=== PATIENT | male | born 1980 | race Hispanic/Latino ===

== ENCOUNTER 2022-11-06 10:01 | Inpatient (IN) | payer OTHER, BC ==
[~2022-11-06 10:01] MED LIST: Iopamidol-370 76% 500 ML MDV (1 ML CHARGE) ONE
[2022-11-06] MEDS ORDERED: fentaNYL 50 mcg/mL 1 mL Vial ONE ×6 (10:36→20:40)
[2022-11-06] MEDS ORDERED: CEFAZOLIN 2 GM VIAL ONE (10:36)
[2022-11-06] MEDS ORDERED: TETANUS, DIPHTHERIA TOX,ADULT (TDVAX) 0.5 ML VIAL IM ONE (10:36)
[2022-11-06] MEDS ORDERED: Boostrix 0.5 ML (Tdap) VIAL (>/=7 yrs of age) ONE (10:38)
[2022-11-06 10:41] LABS: #Basophils 0.1 thou/uL (0.0-0.2); #Eosinphils 0.1 thou/uL (0.0-0.7); #Monocytes 1.3 thou/uL (0.11-0.59); #Neutrophils 17.1 thou/uL (1.40-6.50); %Basophils 0.5 % (0.0-1.0); %Eosinophils 0.5 % (0.0-10.0); %Lymphocytes 11.7 % (21.0-51.0); %Monocytes 5.9 % (0.0-10.0); %Neutrophils 80.5 % (42.0-75.0); Hemoglobin 14.5 g/dL (14.0-18.0); Mean Corpuscular HGB CONC 33.1 g/dL (32.0-36.0); Mean Corpuscular Volume 96.7 fl (78.0-98.0); Mean Platelet Volume 10.1 fL (7.4-10.4); Platelet Count 258 10x3/uL (130-400); RBC Distribution Width 13.4 % (11.5-14.5); Red Blood Cell (RBC) Count 4.53 mill/uL (4.70-6.10); White Blood Cell (WBC) Count 21.2 10x3/uL (4.8-10.8)
[2022-11-06 10:54] LABS: INR-International Normal Ratio 1.1; PTT 23.6 sec (22.9-36.1); Prothrombin Time 14.8 sec (12.0-14.7)
[2022-11-06 10:59] LABS: ALT (SGPT) 60 U/L (8-55); AST (SGOT) 61 U/L (5-34); Albumin 3.6 g/dL (3.5-5.0); Alkaline Phosphatase 76 U/L (40-110); Anion Gap 17 mmol/L (10-20); BUN (Urea Nitrogen) 5 mg/dL (8.9-20.6); Bilirubin, Total 0.6 mg/dL (0.2-1.2); Calc. Creatinine Clearance 0 mL/min (70-130); Carbon Dioxide 15 mmol/L (22-29); Chloride 108 mmol/L (98-107); Estimated GFR 98; Globulin 2.8 g/dL (2.4-3.5); Glucose 176 mg/dL (70-105); Potassium 4.4 mmol/L (3.5-5.1); Protein, Total 6.4 g/dL (6.0-8.3); Sodium 136 mmol/L (136-145)
[2022-11-06] MEDS ORDERED: CEFAZOLIN 2 GM in Sodium Chloride 0.9% 100 ML IVPB SCH ×2 (12:00→14:00)
[2022-11-06] MEDS ORDERED: Ipratropium/Albuterol 3 ML NEB NEB PRN (12:06)
[2022-11-06] MEDS ORDERED: Morphine 2 MG/ML VIAL SLOW IVP PRN (12:06)
[2022-11-06] MEDS ORDERED: Ondansetron PF 4 MG/2 ML Vial IVP PRN ×3 (12:06→21:23)
[2022-11-06] MEDS ORDERED: hydrALAZINE 20 MG/ML VIAL SLOW IVP PRN (12:06)
[2022-11-06] MEDS ORDERED: traMADol HCl 50 MG TAB PO PRN (12:11)
[2022-11-06] MEDS ORDERED: Cyclobenzaprine 10 MG TAB PO PRN (12:11)
[2022-11-06 12:24] LABS: #Basophils 0.1 thou/uL (0.0-0.2); #Monocytes 1.6 thou/uL (0.11-0.59); #Neutrophils 18.9 thou/uL (1.40-6.50); %Basophils 0.2 % (0.0-1.0); %Eosinophils 0.1 % (0.0-10.0); %Lymphocytes 7.6 % (21.0-51.0); %Neutrophils 84.5 % (42.0-75.0); Hemoglobin 13.4 g/dL (14.0-18.0); Mean Corpuscular HGB CONC 32.8 g/dL (32.0-36.0); Mean Corpuscular Hemoglobin 32.3 pg (27.0-31.0); Mean Corpuscular Volume 98.6 fl (78.0-98.0); Mean Platelet Volume 10.2 fL (7.4-10.4); Platelet Count 248 10x3/uL (130-400); RBC Distribution Width 13.4 % (11.5-14.5); Red Blood Cell (RBC) Count 4.15 mill/uL (4.70-6.10); White Blood Cell (WBC) Count 22.3 10x3/uL (4.8-10.8)
[2022-11-06] MEDS ORDERED: Sodium Chloride 0.9% 1,000 ML IV SCH (12:30)
[2022-11-06] MEDS ORDERED: Ondansetron PF 4 MG/2 ML Vial ONE ×2 (12:47→16:30)
[2022-11-06 12:48] LABS: Lactic Acid 6.4 mmol/L (0.5-2.2)
[2022-11-06] MEDS ORDERED: Calcium Chloride 1 GM/10 ML Abboject SYRINGE ONE (13:12)
[2022-11-06 14:06] LABS: Lactic Acid 8.3 mmol/L (0.5-2.2)
[2022-11-06 14:59] LABS: #Monocytes 1.6 thou/uL (0.11-0.59); #Neutrophils 15.8 thou/uL (1.40-6.50); %Basophils 0.2 % (0.0-1.0); %Eosinophils 0.1 % (0.0-10.0); %Lymphocytes 3.7 % (21.0-51.0); %Monocytes 8.6 % (0.0-10.0); %Neutrophils 86.8 % (42.0-75.0); Mean Corpuscular HGB CONC 33.8 g/dL (32.0-36.0); Mean Corpuscular Hemoglobin 31.1 pg (27.0-31.0); Mean Platelet Volume 10.1 fL (7.4-10.4); Platelet Count 184 10x3/uL (130-400); RBC Distribution Width 14.6 % (11.5-14.5); Red Blood Cell (RBC) Count 4.83 mill/uL (4.70-6.10); White Blood Cell (WBC) Count 18.2 10x3/uL (4.8-10.8)
[2022-11-06 15:19] LABS: Bacteria/HPF 2+ HPF (None Seen); Bilirubin Negative (Negative); Blood, Urine 1+ (Negative); CAUTI Indications for Culture Urological Procedure; Clarity Clear (Clear); Glucose, Urine (Dipstick) 50 mg/dL (Negative); Ketone, Urine Negative (Negative); Leukocyte Negative Leu/uL (Negative); Nitrite Negative (Negative); Protein, Urine (Dipstick) 100 mg/dL (Neg-Trace); Specific Gravity, Urine 1.048 (1.002-1.036); Squamous Epithelial 0-3 HPF (0-3); Urobilinogen Normal mg/dL (Less than 2)
[2022-11-06 15:19] LABS: Anion Gap 15 mmol/L (10-20); BUN (Urea Nitrogen) 6 mg/dL (8.9-20.6); Calc. Creatinine Clearance 0 mL/min (70-130); Calcium 8.7 mg/dL (7.8-10.44); Carbon Dioxide 17 mmol/L (22-29); Chloride 109 mmol/L (98-107); Estimated GFR 98; Glucose 140 mg/dL (70-105); Potassium 4.6 mmol/L (3.5-5.1); Sodium 136 mmol/L (136-145)
[2022-11-06 15:22] LABS: Urine Culture Reflex Yes Yes
[2022-11-06 15:22] LABS: Mean Corpuscular Volume 91.9 fl (78.0-98.0)
[2022-11-06] MEDS ORDERED: Fentanyl 250 MCG/5 ML VIAL ONE (15:34)
[2022-11-06] MEDS ORDERED: Dexmedetomidine 200 MCG/2 ML VIAL ONE (15:34)
[2022-11-06 15:49] LABS: Lactic Acid 4.4 mmol/L (0.5-2.2)
[2022-11-06] MEDS ORDERED: PHENYLEPHRINE-NS 100 MCG/ML 10 ML SYRINGE ONE (16:30)
[2022-11-06] MEDS ORDERED: PROPOFOL 200 MG/20 ML VIAL ONE (16:30)
[2022-11-06] MEDS ORDERED: Rocuronium Bromide 10 MG/ML (10ML VIAL) ONE (16:30)
[2022-11-06] MEDS ORDERED: Tranexamic Acid 1,000 MG/10 ML VIAL ONE (17:02)
[2022-11-06] MEDS ORDERED: traMADol HCl 50 MG TAB PO SCH (18:00)
[2022-11-06] MEDS ORDERED: HYDROmorphone 2 MG/ML VIAL ONE (18:28)
[2022-11-06] MEDS ORDERED: SUGAMMADEX SODIUM 200 MG/2 ML VIAL ONE (20:42)
[2022-11-06] MEDS ORDERED: Zolpidem Tartrate 5 MG TAB PO PRN ×2 (20:53→21:23)
[2022-11-06] MEDS ORDERED: diphenhydrAMINE 50 MG/ML VIAL IM PRN ×2 (20:53→21:23)
[2022-11-06] MEDS ORDERED: Promethazine HCl 25 MG/ML VIAL IM PRN ×2 (20:53→21:23)
[2022-11-06] MEDS ORDERED: diphenhydrAMINE 25 MG CAP PO PRN ×2 (20:53→21:23)
[2022-11-06] MEDS ORDERED: Naloxone HCl 0.4 mg/ml Vial IV PRN ×2 (20:53→21:23)
[2022-11-06] MEDS ORDERED: HYDROmorphone 10 mg/100 ml CADD IVPB PRN (20:53)
[2022-11-06] MEDS ORDERED: diphenhydrAMINE 50 MG/ML VIAL IVP PRN ×2 (20:53→21:23)
[2022-11-06] MEDS: Sodium Chloride 0.9% 1,000 ML IV SCH (20:59)
[2022-11-06] MEDS ORDERED: Communication Order-Pharmacy FS SCH ×2 (21:00→21:30)
[2022-11-06] MEDS ORDERED: FENTANYL 500 MCG/10 ML VIAL 2,000 MCG in Sodium Chloride 0.9% 60 ML IV PRN (21:23)
[2022-11-06 21:28] LABS: #Monocytes 0.9 thou/uL (0.11-0.59); #Neutrophils 11.4 thou/uL (1.40-6.50); %Basophils 0.2 % (0.0-1.0); %Lymphocytes 4.8 % (21.0-51.0); %Monocytes 7.1 % (0.0-10.0); %Neutrophils 87.4 % (42.0-75.0); Mean Corpuscular HGB CONC 33.7 g/dL (32.0-36.0); Mean Corpuscular Hemoglobin 31.6 pg (27.0-31.0); Mean Corpuscular Volume 93.8 fl (78.0-98.0); Mean Platelet Volume 10.2 fL (7.4-10.4); Platelet Count 146 10x3/uL (130-400); RBC Distribution Width 15.5 % (11.5-14.5)
[2022-11-06 21:41] LABS: Hemoglobin 11.7 g/dL (14.0-18.0)
[2022-11-06] MEDS: Acetaminophen 500 MG TAB PO SCH ×3 (21:41→23:41)
[2022-11-06 21:53] LABS: Lactic Acid 9.2 mmol/L (0.5-2.2)
[2022-11-06] MEDS: Fentanyl CADD 100 ML IV PRN (22:14)
[2022-11-06 22:30] VITALS: BMI 37.5
[2022-11-06] MEDS: Gabapentin 300 MG CAP PO SCH ×2 (23:16→23:30)
[2022-11-06] MEDS: Senokot S 8.6-50 MG TAB PO SCH (23:30)
[2022-11-06] MEDS: Famotidine/PF 20 mg/2ml Vial SLOW IVP SCH (23:32)
[2022-11-07] MEDS: Sodium Chloride 0.9% 1,000 ML IV SCH ×8 (00:02→22:50)
[2022-11-07 00:25] LABS: Lactic Acid 6.4 mmol/L (0.5-2.2)
[2022-11-07 00:44] LABS: #Monocytes 0.9 thou/uL (0.11-0.59); #Neutrophils 8.5 thou/uL (1.40-6.50); %Basophils 0.2 % (0.0-1.0); %Lymphocytes 8.1 % (21.0-51.0); %Monocytes 8.3 % (0.0-10.0); Hemoglobin 10.3 g/dL (14.0-18.0); Mean Corpuscular HGB CONC 33.9 g/dL (32.0-36.0); Mean Corpuscular Hemoglobin 31.4 pg (27.0-31.0); Mean Corpuscular Volume 92.7 fl (78.0-98.0); Mean Platelet Volume 10.4 fL (7.4-10.4); Platelet Count 135 10x3/uL (130-400); RBC Distribution Width 15.6 % (11.5-14.5); Red Blood Cell (RBC) Count 3.28 mill/uL (4.70-6.10); White Blood Cell (WBC) Count 10.3 10x3/uL (4.8-10.8)
[2022-11-07 01:04] LABS: Anion Gap 18 mmol/L (10-20); BUN (Urea Nitrogen) 8 mg/dL (8.9-20.6); Calc. Creatinine Clearance 173 mL/min (70-130); Calcium 7.7 mg/dL (7.8-10.44); Carbon Dioxide 16 mmol/L (22-29); Chloride 108 mmol/L (98-107); Estimated GFR 109; Glucose 143 mg/dL (70-105); Potassium 4.4 mmol/L (3.5-5.1); Sodium 138 mmol/L (136-145)
[2022-11-07 01:09] LABS: Troponin I 0.045 ng/mL (< 0.028)
[2022-11-07 03:58] LABS: #Neutrophils 8.2 thou/uL (1.40-6.50); %Basophils 0.4 % (0.0-1.0); %Lymphocytes 11.2 % (21.0-51.0); %Monocytes 9.7 % (0.0-10.0); %Neutrophils 78.3 % (42.0-75.0); Hemoglobin 9.8 g/dL (14.0-18.0); Mean Corpuscular Hemoglobin 31.1 pg (27.0-31.0); Mean Corpuscular Volume 91.4 fl (78.0-98.0); Mean Platelet Volume 11.2 fL (7.4-10.4); Platelet Count 130 10x3/uL (130-400); RBC Distribution Width 15.5 % (11.5-14.5); Red Blood Cell (RBC) Count 3.15 mill/uL (4.70-6.10); White Blood Cell (WBC) Count 10.5 10x3/uL (4.8-10.8)
[2022-11-07 04:19] LABS: Anion Gap 14 mmol/L (10-20); BUN (Urea Nitrogen) 7 mg/dL (8.9-20.6); Calc. Creatinine Clearance 179 mL/min (70-130); Calcium 7.4 mg/dL (7.8-10.44); Carbon Dioxide 18 mmol/L (22-29); Chloride 108 mmol/L (98-107); Estimated GFR 110; Glucose 128 mg/dL (70-105); Magnesium 1.5 mg/dL (1.6-2.6); Potassium 4.2 mmol/L (3.5-5.1); Sodium 136 mmol/L (136-145)
[2022-11-07 04:22] LABS: CK (CPK) 3308 U/L (30-200); Phosphorus 3.3 mg/dL (2.3-4.7)
[2022-11-07 04:34] LABS: Lactic Acid 4.1 mmol/L (0.5-2.2)
[2022-11-07 04:36] LABS: ALT (SGPT) 40 U/L (8-55); AST (SGOT) 74 U/L (5-34); Albumin 2.9 g/dL (3.5-5.0); Alkaline Phosphatase 48 U/L (40-110); Bilirubin, Direct 0.6 mg/dL (0.1-0.3); Bilirubin, Total 1.2 mg/dL (0.2-1.2); Protein, Total 4.9 g/dL (6.0-8.3)
[2022-11-07] MEDS: Acetaminophen 500 MG TAB PO SCH ×3 (05:10→17:17)
[2022-11-07] MEDS: CEFAZOLIN 2 GM in Sodium Chloride 0.9% 100 ML IVPB SCH ×4 (05:13→22:31)
[2022-11-07] MEDS: Senokot S 8.6-50 MG TAB PO SCH ×2 (08:34→20:52)
[2022-11-07] MEDS: Polyethylene Glycol 3350 17 GM Packet PO SCH (08:35)
[2022-11-07] MEDS: Gabapentin 300 MG CAP PO SCH ×3 (08:35→20:50)
[2022-11-07] MEDS: Famotidine/PF 20 mg/2ml Vial SLOW IVP SCH ×2 (08:37→20:52)
[2022-11-07] MEDS: Magnesium Sulfate In Water 4 GM in Premix Bag 1 BAG IVPB SCH ×2 (08:37→09:59)
[2022-11-07] MEDS ORDERED: Magnesium Sulfate In Water 4 GM in Premix Bag 1 BAG IVPB SCH (09:00)
[2022-11-07] MEDS ORDERED: Bupivacaine PF 0.5% 30 ML VIAL ONE (13:05)
[2022-11-07] MEDS ORDERED: fentaNYL PF 100 MCG/2 ML SYRINGE ONE (13:06)
[2022-11-07] MEDS ORDERED: Lidocaine 1% PF 5 ML VIAL ONE (13:27)
[2022-11-07] MEDS ORDERED: PROPOFOL 200 MG/20 ML VIAL ONE (13:27)
[2022-11-07] MEDS ORDERED: PROPOFOL 40 ML ONE (13:43)
[2022-11-07 14:18] LABS: Analyzer IN Cardio OR; Base Excess (BEa) -7.8 mEq/L (-2.0 to +3.0); CO2 Tension 32.6 mmHg (35.0-45.0); Calcium, Ionized (arterial) 1.09 mmol/L (1.12-1.30); Carboxyhemoglobin (COHb) 1.9 gm% (0.0-3.0); Hematocrit-ABG 39 % (42.0-52.0); Hemoglobin (Hb) 13.4 g/dL (14.0-18.0); O2 Tension (PaO2), arterial 165.5 mmHg (80.0-100.0); Potassium - ABG Lab 5.22 mmol/L (3.70-5.30); pH, Arterial 7.334 (7.35-7.45)
[2022-11-07 14:19] LABS: Actual Bicarbonate (HCO3a) 17.6 mEq/L (22-28); Analyzer IN Cardio OR; Base Excess (BEa) -6.9 mEq/L (-2.0 to +3.0); CO2 Tension 31.8 mmHg (35.0-45.0); Calcium, Ionized (arterial) 1.05 mmol/L (1.12-1.30); Carboxyhemoglobin (COHb) 1.2 gm% (0.0-3.0); Hematocrit-ABG 34 % (42.0-52.0); Hemoglobin (Hb) 11.6 g/dL (14.0-18.0); O2 Tension (PaO2), arterial 158.6 mmHg (80.0-100.0); Potassium - ABG Lab 4.92 mmol/L (3.70-5.30); Puncture Site Arterial Line
[2022-11-07 14:19] LABS: Puncture Site Arterial Line
[2022-11-07] MEDS ORDERED: PROPOFOL 20 ML ONE (14:26)
[2022-11-07] MEDS ORDERED: Calcium Chloride 1 GM/10 ML Abboject SYRINGE IVP SCH (15:30)
[2022-11-07 17:25] LABS: #Monocytes 0.6 thou/uL (0.11-0.59); #Neutrophils 6.1 thou/uL (1.40-6.50); %Basophils 0.3 % (0.0-1.0); %Eosinophils 0.5 % (0.0-10.0); %Lymphocytes 13.8 % (21.0-51.0); %Monocytes 7.7 % (0.0-10.0); %Neutrophils 77.3 % (42.0-75.0); Hemoglobin 7.9 g/dL (14.0-18.0); Mean Corpuscular HGB CONC 33.6 g/dL (32.0-36.0); Mean Corpuscular Hemoglobin 31.3 pg (27.0-31.0); Mean Corpuscular Volume 93.3 fl (78.0-98.0); Mean Platelet Volume 10.4 fL (7.4-10.4); Platelet Count 101 10x3/uL (130-400); RBC Distribution Width 15.2 % (11.5-14.5); Red Blood Cell (RBC) Count 2.52 mill/uL (4.70-6.10); White Blood Cell (WBC) Count 7.9 10x3/uL (4.8-10.8)
[2022-11-07] MEDS ORDERED: Sodium Chloride 0.9% 1,000 ML IV SCH (17:30)
[2022-11-07 17:43] LABS: Lactic Acid 1.7 mmol/L (0.5-2.2)
[2022-11-07 17:48] LABS: Anion Gap 11 mmol/L (10-20); BUN (Urea Nitrogen) 6 mg/dL (8.9-20.6); Calc. Creatinine Clearance 207 mL/min (70-130); Calcium 7.4 mg/dL (7.8-10.44); Carbon Dioxide 21 mmol/L (22-29); Chloride 109 mmol/L (98-107); Estimated GFR 115; Glucose 119 mg/dL (70-105); Magnesium 2.4 mg/dL (1.6-2.6); Potassium 3.9 mmol/L (3.5-5.1); Sodium 137 mmol/L (136-145)
[2022-11-07 18:05] LABS: CK (CPK) 4821 U/L (30-200)
[2022-11-07 18:20] LABS: Phosphorus 1.9 mg/dL (2.3-4.7)
[2022-11-07] MEDS: Fentanyl CADD 100 ML IV PRN (20:04)
[2022-11-07] MEDS ORDERED: Potassium Phosphate 30 MMOL in Sodium Chloride 0.9% 250 ML 250 ML IVPB SCH (21:45)
[2022-11-08] MEDS: Acetaminophen 500 MG TAB PO SCH ×4 (00:38→18:48)
[2022-11-08] MEDS: Sodium Chloride 0.9% 1,000 ML IV SCH ×2 (05:15→09:17)
[2022-11-08 07:19] LABS: #Eosinphils 0.1 thou/uL (0.0-0.7); #Monocytes 0.6 thou/uL (0.11-0.59); %Basophils 0.1 % (0.0-1.0); %Eosinophils 0.8 % (0.0-10.0); %Lymphocytes 14.6 % (21.0-51.0); %Monocytes 7.9 % (0.0-10.0); Hemoglobin 7.4 g/dL (14.0-18.0); Mean Corpuscular HGB CONC 34.1 g/dL (32.0-36.0); Mean Corpuscular Volume 93.9 fl (78.0-98.0); Mean Platelet Volume 10.1 fL (7.4-10.4); Platelet Count 99 10x3/uL (130-400); RBC Distribution Width 14.6 % (11.5-14.5); Red Blood Cell (RBC) Count 2.31 mill/uL (4.70-6.10); White Blood Cell (WBC) Count 7.9 10x3/uL (4.8-10.8)
[2022-11-08] MEDS ORDERED: Morphine 2 MG/ML VIAL SLOW IVP PRN (07:21)
[2022-11-08] MEDS ORDERED: Morphine 4 MG/ML VIAL SLOW IVP PRN (07:21)
[2022-11-08 07:48] LABS: Anion Gap 9 mmol/L (10-20); BUN (Urea Nitrogen) Less than 4 mg/dL (8.9-20.6); Calc. Creatinine Clearance 265 mL/min (70-130); Calcium 6.6 mg/dL (7.8-10.44); Carbon Dioxide 20 mmol/L (22-29); Chloride 113 mmol/L (98-107); Estimated GFR 121; Glucose 102 mg/dL (70-105); Magnesium 1.6 mg/dL (1.6-2.6); Phosphorus 2.5 mg/dL (2.3-4.7); Potassium 3.2 mmol/L (3.5-5.1); Sodium 139 mmol/L (136-145)
[2022-11-08] MEDS ORDERED: traMADol HCl 50 MG TAB PO SCH (08:00)
[2022-11-08] MEDS: Senokot S 8.6-50 MG TAB PO SCH ×2 (09:14→20:53)
[2022-11-08] MEDS: Ascorbic Acid 500 mg Chewable Tablet PO SCH ×2 (09:14→16:50)
[2022-11-08] MEDS: Gabapentin 300 MG CAP PO SCH ×3 (09:14→20:51)
[2022-11-08] MEDS: Ferrous Sulfate 325 MG TAB PO SCH ×2 (09:15→16:50)
[2022-11-08] MEDS: Famotidine 20 MG TAB PO SCH ×2 (09:15→20:51)
[2022-11-08] MEDS: Polyethylene Glycol 3350 17 GM Packet PO SCH (09:16)
[2022-11-08] MEDS ORDERED: Ondansetron PF 4 MG/2 ML Vial IVP PRN (10:39)
[2022-11-08] MEDS ORDERED: Naloxone HCl 0.4 mg/ml Vial IV PRN (10:39)
[2022-11-08] MEDS ORDERED: Promethazine HCl 25 MG/ML VIAL IM PRN (10:39)
[2022-11-08] MEDS ORDERED: diphenhydrAMINE 50 MG/ML VIAL IM PRN (10:39)
[2022-11-08] MEDS ORDERED: diphenhydrAMINE 50 MG/ML VIAL IVP PRN (10:39)
[2022-11-08] MEDS ORDERED: Zolpidem Tartrate 5 MG TAB PO PRN (10:39)
[2022-11-08] MEDS ORDERED: diphenhydrAMINE 25 MG CAP PO PRN (10:39)
[2022-11-08] MEDS ORDERED: Communication Order-Pharmacy FS SCH (10:45)
[2022-11-08] MEDS: HYDROmorphone 10 mg/100 ml CADD IVPB PRN (11:16)
[2022-11-08 12:02] LABS: #Eosinphils 0.1 thou/uL (0.0-0.7); #Monocytes 0.6 thou/uL (0.11-0.59); #Neutrophils 6.3 thou/uL (1.40-6.50); %Basophils 0.4 % (0.0-1.0); %Eosinophils 0.8 % (0.0-10.0); %Lymphocytes 14.3 % (21.0-51.0); %Neutrophils 76.8 % (42.0-75.0); Hemoglobin 8.5 g/dL (14.0-18.0); Mean Corpuscular HGB CONC 33.7 g/dL (32.0-36.0); Mean Corpuscular Hemoglobin 30.7 pg (27.0-31.0); Mean Platelet Volume 10.3 fL (7.4-10.4); RBC Distribution Width 14.4 % (11.5-14.5); Red Blood Cell (RBC) Count 2.77 mill/uL (4.70-6.10); White Blood Cell (WBC) Count 8.3 10x3/uL (4.8-10.8)
[2022-11-08 12:07] LABS: Platelet Count 106 10x3/uL (130-400)
[2022-11-08 12:09] LABS: Manual Diff?? NO
[2022-11-08 12:40] LABS: CK (CPK) 5705 U/L (30-200)
[2022-11-08 12:46] LABS: Anion Gap 10 mmol/L (10-20); Carbon Dioxide 23 mmol/L (22-29); Chloride 107 mmol/L (98-107); Glucose 126 mg/dL (70-105); Magnesium 1.9 mg/dL (1.6-2.6); Phosphorus 1.5 mg/dL (2.3-4.7); Potassium 3.4 mmol/L (3.5-5.1); Sodium 137 mmol/L (136-145)
[2022-11-08 12:53] LABS: Calcium 7.7 mg/dL (7.8-10.44)
[2022-11-08 12:55] LABS: Calc. Creatinine Clearance 235 mL/min (70-130); Estimated GFR 117
[2022-11-08 12:59] LABS: BUN (Urea Nitrogen) Less than 4 mg/dL (8.9-20.6)
[2022-11-08] MEDS ORDERED: Magnesium 2 GM/50 ML(in water) 2 GM in Premix Bag 1 BAG IVPB SCH ×2 (13:00→18:30)
[2022-11-08] MEDS ORDERED: Potassium Phosphate 30 MMOL in Sodium Chloride 0.9% 250 ML 250 ML IVPB SCH ×2 (13:00→18:30)
[2022-11-08] MEDS ORDERED: Furosemide 20 MG/2 ML VIAL SLOW IVP SCH (16:00)
[2022-11-08 17:58] LABS: Anion Gap 13 mmol/L (10-20); BUN (Urea Nitrogen) Less than 4 mg/dL (8.9-20.6); Calc. Creatinine Clearance 226 mL/min (70-130); Calcium 8.1 mg/dL (7.8-10.44); Carbon Dioxide 23 mmol/L (22-29); Chloride 105 mmol/L (98-107); Estimated GFR 115; Glucose 111 mg/dL (70-105); Magnesium 1.9 mg/dL (1.6-2.6); Sodium 137 mmol/L (136-145)
[2022-11-08] MEDS: Cyclobenzaprine 10 MG TAB PO PRN (20:53)
[2022-11-09] MEDS: Acetaminophen 500 MG TAB PO SCH ×5 (01:07→22:06)
[2022-11-09 06:07] LABS: #Eosinphils 0.2 thou/uL (0.0-0.7); #Monocytes 0.7 thou/uL (0.11-0.59); #Neutrophils 6.4 thou/uL (1.40-6.50); %Basophils 0.5 % (0.0-1.0); %Eosinophils 1.7 % (0.0-10.0); %Lymphocytes 16.2 % (21.0-51.0); %Monocytes 7.8 % (0.0-10.0); %Neutrophils 73.2 % (42.0-75.0); Hemoglobin 8.1 g/dL (14.0-18.0); Mean Corpuscular HGB CONC 33.2 g/dL (32.0-36.0); Mean Corpuscular Hemoglobin 30.2 pg (27.0-31.0); Mean Platelet Volume 10.1 fL (7.4-10.4); Platelet Count 121 10x3/uL (130-400); RBC Distribution Width 14.6 % (11.5-14.5); Red Blood Cell (RBC) Count 2.68 mill/uL (4.70-6.10); White Blood Cell (WBC) Count 8.8 10x3/uL (4.8-10.8)
[2022-11-09 06:28] LABS: Anion Gap 11 mmol/L (10-20); BUN (Urea Nitrogen) 4 mg/dL (8.9-20.6); Calc. Creatinine Clearance 242 mL/min (70-130); Calcium 7.8 mg/dL (7.8-10.44); Carbon Dioxide 23 mmol/L (22-29); Chloride 106 mmol/L (98-107); Estimated GFR 118; Glucose 91 mg/dL (70-105); Magnesium 2.2 mg/dL (1.6-2.6); Phosphorus 3.4 mg/dL (2.3-4.7); Potassium 4.2 mmol/L (3.5-5.1); Sodium 136 mmol/L (136-145)
[2022-11-09 06:49] LABS: CK (CPK) 5092 U/L (30-200)
[2022-11-09] MEDS ORDERED: Sodium Chloride 0.9% 1,000 ML IV SCH (07:30)
[2022-11-09] MEDS: Ferrous Sulfate 325 MG TAB PO SCH ×2 (09:19→16:15)
[2022-11-09] MEDS: Ascorbic Acid 500 mg Chewable Tablet PO SCH ×2 (09:19→16:15)
[2022-11-09] MEDS: Senokot S 8.6-50 MG TAB PO SCH ×2 (09:19→22:05)
[2022-11-09] MEDS: Famotidine 20 MG TAB PO SCH ×2 (09:19→22:05)
[2022-11-09] MEDS: Polyethylene Glycol 3350 17 GM Packet PO SCH (09:20)
[2022-11-09] MEDS: Gabapentin 300 MG CAP PO SCH ×3 (09:20→22:05)
[2022-11-09 14:42] LABS: Hemoglobin 8.2 g/dL (14.0-18.0); Mean Corpuscular HGB CONC 33.6 g/dL (32.0-36.0); Mean Corpuscular Hemoglobin 31.5 pg (27.0-31.0); Mean Platelet Volume 9.8 fL (7.4-10.4); Platelet Count 148 10x3/uL (130-400); RBC Distribution Width 14.7 % (11.5-14.5); White Blood Cell (WBC) Count 9.2 10x3/uL (4.8-10.8)
[2022-11-09 14:43] LABS: Delete Auto Diff?? YES; Manual Diff?? YES; Mean Corpuscular Volume 93.8 fl (78.0-98.0)
[2022-11-09 14:53] LABS: Lactic Acid 0.9 mmol/L (0.5-2.2)
[2022-11-09 14:57] LABS: Anion Gap 11 mmol/L (10-20); BUN (Urea Nitrogen) 7 mg/dL (8.9-20.6); Calc. Creatinine Clearance 235 mL/min (70-130); Carbon Dioxide 24 mmol/L (22-29); Chloride 101 mmol/L (98-107); Estimated GFR 117; Glucose 115 mg/dL (70-105); Sodium 132 mmol/L (136-145)
[2022-11-09 15:03] LABS: Band 3 % (5-11); CellaVision Operator ID LAB.MJL; Eosinophils 1 % (0-10); Lymphocytes 9 % (21-51); Monocytes 7 % (0-10); Neutrophil 79 % (42-75); Nucleated RBC (Manual Ct) 1 % (0); Platelet Adequacy Comment Platelets Normal; Polychromasia SLIGHT = 2-3 cells HPF (0-2); Total Cell Count 101
[2022-11-09] MEDS: HYDROmorphone 10 mg/100 ml CADD IVPB PRN (15:08)
[2022-11-09 16:49] LABS: Troponin I 0.028 ng/mL (< 0.028)
[2022-11-10] MEDS: Acetaminophen 500 MG TAB PO SCH ×3 (05:43→17:51)
[2022-11-10 07:30] LABS: #Eosinphils 0.2 thou/uL (0.0-0.7); #Monocytes 0.8 thou/uL (0.11-0.59); #Neutrophils 5.9 thou/uL (1.40-6.50); %Basophils 0.5 % (0.0-1.0); %Lymphocytes 15.4 % (21.0-51.0); %Monocytes 9.5 % (0.0-10.0); %Neutrophils 70.3 % (42.0-75.0); Hemoglobin 8.3 g/dL (14.0-18.0); Mean Corpuscular HGB CONC 34.4 g/dL (32.0-36.0); Mean Corpuscular Hemoglobin 32.2 pg (27.0-31.0); Mean Corpuscular Volume 93.4 fl (78.0-98.0); Mean Platelet Volume 9.5 fL (7.4-10.4); Platelet Count 168 10x3/uL (130-400); RBC Distribution Width 14.5 % (11.5-14.5); Red Blood Cell (RBC) Count 2.58 mill/uL (4.70-6.10); White Blood Cell (WBC) Count 8.4 10x3/uL (4.8-10.8)
[2022-11-10 07:52] LABS: Anion Gap 9 mmol/L (10-20); BUN (Urea Nitrogen) 6 mg/dL (8.9-20.6); Calc. Creatinine Clearance 257 mL/min (70-130); Calcium 8.2 mg/dL (7.8-10.44); Carbon Dioxide 25 mmol/L (22-29); Chloride 105 mmol/L (98-107); Estimated GFR 120; Glucose 102 mg/dL (70-105); Magnesium 1.9 mg/dL (1.6-2.6); Phosphorus 2.9 mg/dL (2.3-4.7); Potassium 3.8 mmol/L (3.5-5.1); Sodium 135 mmol/L (136-145)
[2022-11-10 08:04] LABS: CK (CPK) 4613 U/L (30-200)
[2022-11-10] MEDS: Senokot S 8.6-50 MG TAB PO SCH ×2 (08:16→21:21)
[2022-11-10] MEDS: Polyethylene Glycol 3350 17 GM Packet PO SCH (08:16)
[2022-11-10] MEDS: Gabapentin 300 MG CAP PO SCH ×3 (08:16→21:22)
[2022-11-10] MEDS: Ascorbic Acid 500 mg Chewable Tablet PO SCH ×2 (08:16→17:52)
[2022-11-10] MEDS: Ferrous Sulfate 325 MG TAB PO SCH ×2 (08:17→17:52)
[2022-11-10] MEDS: Famotidine 20 MG TAB PO SCH ×2 (08:17→21:21)
[2022-11-10] MEDS: Ibuprofen 200 MG TAB PO SCH ×2 (09:32→17:51)
[2022-11-10] MEDS: traMADol HCl 50 MG TAB PO SCH ×3 (09:33→21:32)
[2022-11-10] MEDS: Cyclobenzaprine 10 MG TAB PO PRN ×2 (13:01→21:21)
[2022-11-10] MEDS: Ondansetron PF 4 MG/2 ML Vial IVP PRN ×2 (14:40→21:22)
[2022-11-10] MEDS: traMADol HCl 50 MG TAB PO PRN (17:52)
[2022-11-10] MEDS ORDERED: Acetaminophen/Codeine 30-300mg Tablet PO SCH (21:00)
[2022-11-10] MEDS: Acetaminophen/Codeine 30-300mg Tablet PO SCH (21:20)
[2022-11-10] MEDS: Acetaminophen 325 MG/10.15 ML UDCUP PO SCH (21:41)
[2022-11-11] MEDS: Acetaminophen/Codeine 30-300mg Tablet PO SCH ×4 (02:18→20:16)
[2022-11-11] MEDS: Ibuprofen 200 MG TAB PO SCH ×3 (02:18→16:07)
[2022-11-11] MEDS: traMADol HCl 50 MG TAB PO SCH ×4 (02:19→20:17)
[2022-11-11] MEDS: Acetaminophen 325 MG/10.15 ML UDCUP PO SCH ×4 (05:17→23:13)
[2022-11-11] MEDS: Gabapentin 300 MG CAP PO SCH ×3 (08:01→20:16)
[2022-11-11] MEDS: Polyethylene Glycol 3350 17 GM Packet PO SCH (08:01)
[2022-11-11] MEDS: Ascorbic Acid 500 mg Chewable Tablet PO SCH ×2 (08:02→16:07)
[2022-11-11] MEDS: Ferrous Sulfate 325 MG TAB PO SCH ×2 (08:02→16:08)
[2022-11-11] MEDS: Senokot S 8.6-50 MG TAB PO SCH ×2 (08:03→20:16)
[2022-11-11] MEDS: Famotidine 20 MG TAB PO SCH ×2 (08:03→20:17)
[2022-11-11] MEDS: Cyclobenzaprine 10 MG TAB PO PRN ×2 (11:39→20:16)
[2022-11-12] MEDS: Acetaminophen/Codeine 30-300mg Tablet PO SCH ×4 (03:16→20:34)
[2022-11-12] MEDS: traMADol HCl 50 MG TAB PO SCH ×4 (03:17→20:33)
[2022-11-12] MEDS: Ibuprofen 200 MG TAB PO SCH ×3 (03:19→16:53)
[2022-11-12] MEDS: Acetaminophen 325 MG/10.15 ML UDCUP PO SCH ×4 (05:45→20:34)
[2022-11-12] MEDS: Polyethylene Glycol 3350 17 GM Packet PO SCH (08:00)
[2022-11-12] MEDS: Ferrous Sulfate 325 MG TAB PO SCH ×2 (08:00→16:53)
[2022-11-12] MEDS: Gabapentin 300 MG CAP PO SCH ×3 (08:01→20:35)
[2022-11-12] MEDS: Senokot S 8.6-50 MG TAB PO SCH ×2 (08:03→20:33)
[2022-11-12] MEDS: Ascorbic Acid 500 mg Chewable Tablet PO SCH ×2 (08:03→16:53)
[2022-11-12] MEDS: Famotidine 20 MG TAB PO SCH ×2 (08:03→20:32)
[2022-11-12] MEDS: Cyclobenzaprine 10 MG TAB PO PRN (15:26)
[2022-11-12] MEDS: traMADol HCl 50 MG TAB PO PRN (18:10)
[2022-11-13] MEDS: Ibuprofen 200 MG TAB PO SCH ×3 (00:46→17:56)
[2022-11-13] MEDS: Acetaminophen 325 MG/10.15 ML UDCUP PO SCH (02:34)
[2022-11-13] MEDS: Acetaminophen/Codeine 30-300mg Tablet PO SCH ×2 (02:35→08:20)
[2022-11-13] MEDS: traMADol HCl 50 MG TAB PO SCH ×2 (02:36→08:19)
[2022-11-13] MEDS: Cyclobenzaprine 10 MG TAB PO PRN (06:24)
[2022-11-13] MEDS: Ascorbic Acid 500 mg Chewable Tablet PO SCH ×2 (08:17→17:58)
[2022-11-13] MEDS: Ferrous Sulfate 325 MG TAB PO SCH ×2 (08:17→17:57)
[2022-11-13] MEDS: Polyethylene Glycol 3350 17 GM Packet PO SCH (08:18)
[2022-11-13] MEDS: Famotidine 20 MG TAB PO SCH ×2 (08:18→20:01)
[2022-11-13] MEDS: Senokot S 8.6-50 MG TAB PO SCH ×2 (08:18→20:01)
[2022-11-13] MEDS: Gabapentin 300 MG CAP PO SCH ×3 (08:20→20:01)
[2022-11-13] MEDS ORDERED: Acetaminophen 325 MG/10.15 ML UDCUP PO SCH (08:45)
[2022-11-13] MEDS: traMADol HCl 50 MG TAB PO PRN (09:42)
[2022-11-13] MEDS: tiZANidine HCl 4 MG TAB PO PRN ×2 (09:43→19:52)
[2022-11-13] MEDS: HYDROcodone/Acetaminophen 7.5/325 mg Tablet PO PRN (15:29)
[2022-11-13] MEDS: Gemfibrozil 600 MG TAB PO SCH (17:57)
[2022-11-13] MEDS: HYDROcodone/Acetaminophen 7.5/325 mg Tablet PO SCH (17:57)
[2022-11-13] MEDS: traZODone HCl 50 MG TAB PO SCH (20:01)
[2022-11-14] MEDS: HYDROcodone/Acetaminophen 7.5/325 mg Tablet PO SCH ×3 (00:20→11:33)
[2022-11-14] MEDS: Ibuprofen 200 MG TAB PO SCH ×3 (00:20→17:12)
[2022-11-14] MEDS: Cyclobenzaprine 10 MG TAB PO PRN ×2 (04:25→17:13)
[2022-11-14 06:09] LABS: Hemoglobin 9.6 g/dL (14.0-18.0); Mean Corpuscular HGB CONC 31.7 g/dL (32.0-36.0); Mean Corpuscular Hemoglobin 31.1 pg (27.0-31.0); Mean Corpuscular Volume 98.1 fl (78.0-98.0); Mean Platelet Volume 9.3 fL (7.4-10.4); Platelet Count 409 10x3/uL (130-400); RBC Distribution Width 16.3 % (11.5-14.5); Red Blood Cell (RBC) Count 3.09 mill/uL (4.70-6.10); White Blood Cell (WBC) Count 8.9 10x3/uL (4.8-10.8)
[2022-11-14 06:12] LABS: Delete Auto Diff?? YES; Manual Diff?? YES
[2022-11-14 06:33] LABS: Anion Gap 11 mmol/L (10-20); BUN (Urea Nitrogen) 9 mg/dL (8.9-20.6); CK (CPK) 512 U/L (30-200); Calc. Creatinine Clearance 212 mL/min (70-130); Carbon Dioxide 25 mmol/L (22-29); Chloride 102 mmol/L (98-107); Estimated GFR 113; Glucose 107 mg/dL (70-105); Potassium 4.1 mmol/L (3.5-5.1); Sodium 134 mmol/L (136-145)
[2022-11-14 06:53] LABS: Band 2 % (5-11); CellaVision Operator ID LAB.GE; Eosinophils 3 % (0-10); Lymphocytes 14 % (21-51); Metamyelocyte 2 % (0-0); Monocytes 9 % (0-10); Myelocyte 1 % (0-0); Neutrophil 69 % (42-75); Nucleated RBC (Manual Ct) 2 % (0); Platelet Adequacy Comment Platelets Increased; Polychromasia MODERATE = 3-4 cells HPF (0-2); Total Cell Count 99
[2022-11-14] MEDS: Atorvastatin Calcium 40 MG TAB PO SCH (09:04)
[2022-11-14] MEDS: Ferrous Sulfate 325 MG TAB PO SCH ×2 (09:04→17:13)
[2022-11-14] MEDS: Gabapentin 300 MG CAP PO SCH ×3 (09:04→20:21)
[2022-11-14] MEDS: Gemfibrozil 600 MG TAB PO SCH ×2 (09:04→16:06)
[2022-11-14] MEDS: Ascorbic Acid 500 mg Chewable Tablet PO SCH ×2 (09:04→17:12)
[2022-11-14] MEDS: Famotidine 20 MG TAB PO SCH ×2 (09:04→20:22)
[2022-11-14] MEDS: Polyethylene Glycol 3350 17 GM Packet PO SCH (09:04)
[2022-11-14] MEDS: Senokot S 8.6-50 MG TAB PO SCH ×2 (09:21→20:21)
[2022-11-14] MEDS: HYDROcodone/Acetaminophen 7.5/325 mg Tablet PO PRN ×2 (11:33→19:18)
[2022-11-14] MEDS: HYDROcodone/Acetaminophen 10/325 mg Tablet PO SCH ×3 (16:07→20:22)
[2022-11-14] MEDS: tiZANidine HCl 4 MG TAB PO PRN (19:18)
[2022-11-14] MEDS: traZODone HCl 50 MG TAB PO SCH (20:22)
[2022-11-14] MEDS: traMADol HCl 50 MG TAB PO PRN (22:20)
[2022-11-14] MEDS ORDERED: Morphine 4 MG/ML VIAL SLOW IVP SCH (23:00)
[2022-11-14] MEDS: cloNIDine 0.2 MG TAB PO SCH (23:28)
[2022-11-15] MEDS: HYDROcodone/Acetaminophen 10/325 mg Tablet PO SCH ×6 (00:33→20:15)
[2022-11-15] MEDS: Ibuprofen 200 MG TAB PO SCH ×3 (00:33→17:45)
[2022-11-15] MEDS: Cyclobenzaprine 10 MG TAB PO PRN (04:47)
[2022-11-15] MEDS: cloNIDine 0.2 MG TAB PO SCH ×2 (08:13→15:28)
[2022-11-15] MEDS: Gabapentin 300 MG CAP PO SCH ×3 (08:15→20:16)
[2022-11-15] MEDS: Famotidine 20 MG TAB PO SCH ×2 (08:16→20:30)
[2022-11-15] MEDS: Gemfibrozil 600 MG TAB PO SCH ×2 (08:16→15:28)
[2022-11-15] MEDS: Senokot S 8.6-50 MG TAB PO SCH (08:17)
[2022-11-15] MEDS: Atorvastatin Calcium 40 MG TAB PO SCH (08:17)
[2022-11-15] MEDS: Polyethylene Glycol 3350 17 GM Packet PO SCH (08:17)
[2022-11-15] MEDS: Ascorbic Acid 500 mg Chewable Tablet PO SCH ×2 (08:17→17:46)
[2022-11-15] MEDS: Ferrous Sulfate 325 MG TAB PO SCH ×2 (08:17→17:46)
[2022-11-15] MEDS: traMADol HCl 50 MG TAB PO PRN ×2 (09:49→20:31)
[2022-11-15] MEDS ORDERED: DULoxetine 30 MG CAP PO SCH (12:10)
[2022-11-15] MEDS ORDERED: diphenhydrAMINE 25 MG CAP PO SCH (13:45)
[2022-11-15] MEDS ORDERED: Ibuprofen 800 MG TAB ONE (20:10)
[2022-11-15] MEDS ORDERED: HYDROcodone/Acetaminophen 10/325 mg Tablet ONE (20:10)
[2022-11-15] MEDS ORDERED: traZODone HCl 50 MG TAB ONE (20:11)
[2022-11-15] MEDS ORDERED: Gabapentin 300 MG CAP ONE (20:11)
[2022-11-15] MEDS: traZODone HCl 50 MG TAB PO SCH (20:17)
[2022-11-15] MEDS: tiZANidine HCl 4 MG TAB PO PRN (20:29)
[2022-11-16] MEDS: Senokot S 8.6-50 MG TAB PO SCH ×3 (00:28→20:02)
[2022-11-16] MEDS: cloNIDine 0.2 MG TAB PO SCH ×3 (00:29→15:51)
[2022-11-16] MEDS: Ibuprofen 200 MG TAB PO SCH ×3 (00:49→17:29)
[2022-11-16] MEDS: HYDROcodone/Acetaminophen 10/325 mg Tablet PO SCH ×6 (00:50→20:02)
[2022-11-16] MEDS: Cyclobenzaprine 10 MG TAB PO PRN ×3 (00:53→20:03)
[2022-11-16] MEDS: Gemfibrozil 600 MG TAB PO SCH ×2 (06:55→15:51)
[2022-11-16] MEDS: Gabapentin 300 MG CAP PO SCH ×3 (08:55→20:03)
[2022-11-16] MEDS: DULoxetine 30 MG CAP PO SCH (08:55)
[2022-11-16] MEDS: Ferrous Sulfate 325 MG TAB PO SCH ×2 (08:56→16:35)
[2022-11-16] MEDS: Famotidine 20 MG TAB PO SCH ×2 (08:56→20:03)
[2022-11-16] MEDS: Ascorbic Acid 500 mg Chewable Tablet PO SCH ×2 (08:56→16:35)
[2022-11-16] MEDS: Atorvastatin Calcium 40 MG TAB PO SCH (08:56)
[2022-11-16] MEDS ORDERED: DULoxetine 20 MG CAP PO SCH (09:00)
[2022-11-16] MEDS: Polyethylene Glycol 3350 17 GM Packet PO SCH (09:03)
[2022-11-16] MEDS: traMADol HCl 50 MG TAB PO PRN ×2 (10:56→16:34)
[2022-11-16] MEDS: tiZANidine HCl 4 MG TAB PO PRN (16:34)
[2022-11-16] MEDS: diphenhydrAMINE 25 MG CAP PO PRN (16:41)
[2022-11-16] MEDS: traZODone HCl 50 MG TAB PO SCH (20:03)
[2022-11-17] MEDS: HYDROcodone/Acetaminophen 10/325 mg Tablet PO SCH ×7 (03:12→21:00)
[2022-11-17] MEDS: cloNIDine 0.2 MG TAB PO SCH ×4 (03:13→23:56)
[2022-11-17] MEDS: Ibuprofen 200 MG TAB PO SCH ×3 (03:13→16:10)
[2022-11-17] MEDS: Gemfibrozil 600 MG TAB PO SCH ×2 (06:48→16:10)
[2022-11-17] MEDS: Famotidine 20 MG TAB PO SCH ×2 (08:06→20:31)
[2022-11-17] MEDS: Polyethylene Glycol 3350 17 GM Packet PO SCH (08:06)
[2022-11-17] MEDS: diphenhydrAMINE 25 MG CAP PO PRN (08:06)
[2022-11-17] MEDS: Senokot S 8.6-50 MG TAB PO SCH ×3 (08:07→20:31)
[2022-11-17] MEDS: Gabapentin 300 MG CAP PO SCH ×3 (08:07→20:30)
[2022-11-17] MEDS: Atorvastatin Calcium 40 MG TAB PO SCH (08:07)
[2022-11-17] MEDS: Ascorbic Acid 500 mg Chewable Tablet PO SCH ×2 (08:08→16:10)
[2022-11-17] MEDS: DULoxetine 30 MG CAP PO SCH (08:08)
[2022-11-17] MEDS: Ferrous Sulfate 325 MG TAB PO SCH ×2 (08:08→16:10)
[2022-11-17] MEDS: tiZANidine HCl 4 MG TAB PO PRN ×3 (08:13→20:30)
[2022-11-17] MEDS: traMADol HCl 50 MG TAB PO PRN (13:41)
[2022-11-17] MEDS: HYDROcodone/Acetaminophen 7.5/325 mg Tablet PO PRN (16:11)
[2022-11-17] MEDS: traZODone HCl 50 MG TAB PO SCH (20:30)
[2022-11-18] MEDS: Ibuprofen 200 MG TAB PO SCH ×3 (01:59→18:07)
[2022-11-18] MEDS: HYDROcodone/Acetaminophen 10/325 mg Tablet PO SCH ×5 (01:59→21:38)
[2022-11-18] MEDS: traMADol HCl 50 MG TAB PO PRN ×2 (02:00→11:07)
[2022-11-18] MEDS: diphenhydrAMINE 25 MG CAP PO PRN ×2 (02:03→11:10)
[2022-11-18] MEDS: Gemfibrozil 600 MG TAB PO SCH ×2 (05:55→18:07)
[2022-11-18] MEDS: cloNIDine 0.2 MG TAB PO SCH ×3 (08:25→22:36)
[2022-11-18] MEDS: Famotidine 20 MG TAB PO SCH ×2 (08:25→21:39)
[2022-11-18] MEDS: DULoxetine 30 MG CAP PO SCH (08:25)
[2022-11-18] MEDS: Ascorbic Acid 500 mg Chewable Tablet PO SCH ×2 (08:25→18:07)
[2022-11-18] MEDS: Ferrous Sulfate 325 MG TAB PO SCH ×2 (08:25→18:06)
[2022-11-18] MEDS: Gabapentin 300 MG CAP PO SCH ×3 (08:26→21:39)
[2022-11-18] MEDS: Atorvastatin Calcium 40 MG TAB PO SCH (08:26)
[2022-11-18] MEDS: Polyethylene Glycol 3350 17 GM Packet PO SCH (10:32)
[2022-11-18] MEDS: HYDROcodone/Acetaminophen 7.5/325 mg Tablet PO PRN (13:53)
[2022-11-18] MEDS ORDERED: Morphine 2 MG/ML VIAL SLOW IVP SCH (20:45)
[2022-11-18] MEDS: Senokot S 8.6-50 MG TAB PO SCH (21:39)
[2022-11-18] MEDS: traZODone HCl 50 MG TAB PO SCH (21:39)
[2022-11-19] MEDS: Ibuprofen 200 MG TAB PO SCH ×3 (01:55→17:09)
[2022-11-19] MEDS: HYDROcodone/Acetaminophen 10/325 mg Tablet PO SCH ×6 (01:56→20:50)
[2022-11-19] MEDS: cloNIDine 0.2 MG TAB PO SCH ×2 (06:18→13:59)
[2022-11-19] MEDS: Gemfibrozil 600 MG TAB PO SCH ×2 (06:18→17:09)
[2022-11-19] MEDS: Gabapentin 300 MG CAP PO SCH ×3 (09:01→20:52)
[2022-11-19] MEDS: DULoxetine 30 MG CAP PO SCH (09:01)
[2022-11-19] MEDS: Ferrous Sulfate 325 MG TAB PO SCH ×2 (09:01→17:09)
[2022-11-19] MEDS: Atorvastatin Calcium 40 MG TAB PO SCH (09:01)
[2022-11-19] MEDS: Ascorbic Acid 500 mg Chewable Tablet PO SCH ×2 (09:02→17:09)
[2022-11-19] MEDS: Senokot S 8.6-50 MG TAB PO SCH ×2 (09:02→20:52)
[2022-11-19] MEDS: Famotidine 20 MG TAB PO SCH ×2 (09:03→20:51)
[2022-11-19] MEDS: Polyethylene Glycol 3350 17 GM Packet PO SCH (09:04)
[2022-11-19] MEDS: diphenhydrAMINE 25 MG CAP PO PRN ×2 (09:08→20:57)
[2022-11-19] MEDS: Ondansetron PF 4 MG/2 ML Vial IVP PRN (10:49)
[2022-11-19] MEDS: HYDROcodone/Acetaminophen 7.5/325 mg Tablet PO PRN ×2 (11:18→19:08)
[2022-11-19] MEDS: Cyclobenzaprine 10 MG TAB PO PRN (19:08)
[2022-11-19] MEDS: traZODone HCl 50 MG TAB PO SCH (20:51)
[2022-11-20] MEDS: Ibuprofen 200 MG TAB PO SCH ×3 (00:43→16:11)
[2022-11-20] MEDS: cloNIDine 0.2 MG TAB PO SCH ×4 (00:43→22:41)
[2022-11-20] MEDS: HYDROcodone/Acetaminophen 10/325 mg Tablet PO SCH ×6 (00:44→21:08)
[2022-11-20] MEDS: Gemfibrozil 600 MG TAB PO SCH ×2 (06:40→16:11)
[2022-11-20] MEDS: diphenhydrAMINE 25 MG CAP PO PRN ×2 (06:43→21:33)
[2022-11-20] MEDS: DULoxetine 30 MG CAP PO SCH (08:09)
[2022-11-20] MEDS: Polyethylene Glycol 3350 17 GM Packet PO SCH (08:09)
[2022-11-20] MEDS: Atorvastatin Calcium 40 MG TAB PO SCH (08:10)
[2022-11-20] MEDS: Famotidine 20 MG TAB PO SCH ×2 (08:10→21:08)
[2022-11-20] MEDS: Ferrous Sulfate 325 MG TAB PO SCH ×2 (08:10→16:11)
[2022-11-20] MEDS: Gabapentin 300 MG CAP PO SCH ×3 (08:10→21:07)
[2022-11-20] MEDS: Senokot S 8.6-50 MG TAB PO SCH ×2 (08:10→21:08)
[2022-11-20] MEDS: Ascorbic Acid 500 mg Chewable Tablet PO SCH ×2 (08:10→16:11)
[2022-11-20] MEDS ORDERED: Ergocalciferol 1.25 MG(50,000 UNITS) CAP PO SCH (09:00)
[2022-11-20] MEDS: HYDROcodone/Acetaminophen 7.5/325 mg Tablet PO PRN (12:01)
[2022-11-20 14:18] LABS: Bacteria/HPF None Seen HPF (None Seen); Bilirubin Negative (Negative); Blood, Urine Negative (Negative); CAUTI Indications for Culture Pelvic or flank pain; Clarity Clear (Clear); Glucose, Urine (Dipstick) Normal (Negative); Ketone, Urine Negative (Negative); Leukocyte Negative Leu/uL (Negative); Nitrite Negative (Negative); Protein, Urine (Dipstick) Negative (Neg-Trace); RBC/HPF 0-3 HPF (0-3); Specific Gravity, Urine 1.006 (1.002-1.036); Squamous Epithelial None Seen HPF (0-3); Urobilinogen Normal mg/dL (Less than 2); WBC/HPF None Seen HPF (0-3); pH, Urine 5.5 (5.0-9.0)
[2022-11-20 14:20] LABS: Urine Culture Reflex No No
[2022-11-20] MEDS: tiZANidine HCl 4 MG TAB PO PRN (21:07)
[2022-11-20] MEDS: traZODone HCl 50 MG TAB PO SCH (21:07)
[2022-11-21] MEDS: HYDROcodone/Acetaminophen 10/325 mg Tablet PO SCH ×5 (00:53→16:10)
[2022-11-21] MEDS: Ibuprofen 200 MG TAB PO SCH ×3 (00:53→16:10)
[2022-11-21] MEDS: cloNIDine 0.2 MG TAB PO SCH ×2 (07:59→14:41)
[2022-11-21] MEDS: Gemfibrozil 600 MG TAB PO SCH ×2 (08:00→16:10)
[2022-11-21] MEDS: Senokot S 8.6-50 MG TAB PO SCH (08:01)
[2022-11-21] MEDS: Gabapentin 300 MG CAP PO SCH ×2 (08:01→14:41)
[2022-11-21] MEDS: DULoxetine 30 MG CAP PO SCH (08:01)
[2022-11-21] MEDS: Ascorbic Acid 500 mg Chewable Tablet PO SCH ×2 (08:01→16:10)
[2022-11-21] MEDS: Atorvastatin Calcium 40 MG TAB PO SCH (08:01)
[2022-11-21] MEDS: Polyethylene Glycol 3350 17 GM Packet PO SCH (08:02)
[2022-11-21] MEDS: Ferrous Sulfate 325 MG TAB PO SCH ×2 (08:02→16:10)
[2022-11-21] MEDS: Famotidine 20 MG TAB PO SCH (08:02)
[2022-11-21] MEDS: traMADol HCl 50 MG TAB PO PRN (12:07)
[2022-11-21 16:08] VITALS: BP 125/78; TEMP 97.2
== END 2022-11-21 17:52 | DRG 480 ==
LOC: ERS 10:01 → SDC 16:17 → CCU 20:50 → UNDOADMIN 20:50 → SURG A 11-08 17:26
PROVIDERS: ADMIT Surgery; ATTEND Surgery
PROC: 0QSH04Z Reposition Left Tibia with Internal Fixation Device, Open Approach (ICD-10-PCS; principal; 2022-11-06)
PROC: 0QS706Z Reposition Left Upper Femur with Intramedullary Internal Fixation Device, Open Approach (ICD-10-PCS; 2022-11-06)
PROC: 0QW804Z Revision of Internal Fixation Device in Right Femoral Shaft, Open Approach (ICD-10-PCS; 2022-11-06)
PROC: 0JQH0ZZ Repair Left Lower Arm Subcutaneous Tissue and Fascia, Open Approach (ICD-10-PCS; 2022-11-07)
PROC: 4A133R1 Monitoring of Arterial Saturation, Peripheral, Percutaneous Approach (ICD-10-PCS; 2022-11-07)
PROC: 30233N1 Transfusion of Nonautologous Red Blood Cells into Peripheral Vein, Percutaneous Approach (ICD-10-PCS; 2022-11-07)
PROC: 30233K1 Transfusion of Nonautologous Frozen Plasma into Peripheral Vein, Percutaneous Approach (ICD-10-PCS; 2022-11-07)
DX: S82.142A Displaced bicondylar fracture of left tibia, initial encounter for closed fracture (principal); R57.8 Other shock; S72.22 Displaced subtrochanteric fracture of left femur; S72.301A Unspecified fracture of shaft of right femur, initial encounter for closed fracture; S22.42XA Multiple fractures of ribs, left side, initial encounter for closed fracture; D62 Acute posthemorrhagic anemia; M62.82 Rhabdomyolysis; E78.00 Pure hypercholesterolemia, unspecified; E66.9 Obesity, unspecified; I10 Essential (primary) hypertension; S82.452A Displaced comminuted fracture of shaft of left fibula, initial encounter for closed fracture; E87.5 Hyperkalemia; E83.42 Hypomagnesemia; S41.112A Laceration without foreign body of left upper arm, initial encounter; V44.6XXA Car passenger injured in collision with heavy transport vehicle or bus in traffic accident, initial encounter; Z79.899 Other long term (current) drug therapy
CPT/HCPCS: 36415; 36416; 36430; 51702; 70450; 71045; 71250; 71260; 72125; 72170; 74177; 75635; 80048; 80053; 80076; 81001; 82550; 82805; 83605; 83735; 84100; 84484; 85025; 85610; 85730; 86850; 86900; 86901; 87086; 90471; 90714; 90715; 93005; 93010; 94760; 96361; 96374; 96375; 96376; C1713; G0390; J1170; J1200; J1650; J1940; J2270; J2272; J2405; J2704; J3010; J3475; J3490; J7050; P9016; P9059; Q9967; S0020; S0028